=== PATIENT | male | born 1995 | race Caucasian/White ===

== ENCOUNTER 2017-09-09 20:34 | Emergency (ER) | payer SELFPAY ==
[2017-09-09 20:40] VITALS: RESP 16
[2017-09-09] MEDS ORDERED: Sodium Chloride 0.9% 1,000 ML IV STA (20:59)
[2017-09-09 21:18] LABS: BASO # 0.1 K/uL (0.0-0.2); BASO % 0.6 % (0.0-2.0); EOS % 0.1 % (0.0-4.0); HEMOGLOBIN 13.5 g/dL (12.0-18.0); LYMPH # 2.2 K/uL (1.0-4.3); LYMPH % 11.6 % (20.0-40.0); MEAN CELL VOLUME 85.1 fl (80.0-94.0); MEAN CORPUSCULAR HEMOGLOBIN 28.9 pg (27.0-31.0); MEAN PLATELET VOLUME 9.8 fl (7.2-11.7); MONO # 0.8 K/uL (0.0-0.8); MONO % 4.1 % (0.0-10.0); NEUT # 16.1 K/uL (1.8-7.0); NEUT % 83.6 % (50.0-75.0); RBC 4.66 Mil/uL (4.40-5.90); WHITE BLOOD COUNT 19.3 K/uL (4.8-10.8)
[2017-09-09 21:27] LABS: CALCIUM 9.2 mg/dL (8.4-10.2); GFR AFRICAN-AMERICAN > 60; GFR NON-AFRICAN AMERICAN > 60
[2017-09-09 21:28] LABS: ALB/GLOB RATIO 1.2 (1.0-2.1); ALBUMIN 4.4 g/dL (3.5-5.0); ALT/SGPT 28 U/L (21-72); AST/SGOT 38 U/L (17-59); BLOOD UREA NITROGEN 22 mg/dl (9-20)
--- NOTE | 2017-09-09 22:18 | ED PDOC ---
HPI: Psych/Substance Abuse Time Seen by Provider: 09/09/17 20:44 Chief Complaint (Nursing): Substance Abuse Chief Complaint (Provider): Substance Abuse ED Caveat: Altered Mental Status History Per: Patient History/Exam Limitations: intoxication Current Symptoms Are (Timing): Still Present Additional History Per: EMS Additional Complaint(s): Stephon is a 22 y/o male who was brought to the ED via EMS for substance abuse. 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 The fall was witnessed and patient did not lose consciousness. Patient admitted to EMS to eating chocolate containing THC but denied any other drug use. PMD: None Provided Past Medical History Reviewed: Historical Data, Nursing Documentation, Vital Signs, Unable To Obtain Vital Signs: Last Vital Signs Temp 99 F 09/09/17 20:37 Pulse 137 H 09/09/17 20:37 Resp 16 09/09/17 20:37 BP 145/73 09/09/17 20:37 Pulse Ox 96 09/09/17 20:37 - Medical History PMH: Depression - Family History Family History: States: Unknown Family Hx - Social History Drugs: Cannabis - Immunization History Hx Tetanus Toxoid Vaccination: No Hx Influenza Vaccination: No Hx Pneumococcal Vaccination: No - Home Medications Home Medications: Ambulatory Orders Medication Instructions Recorded Acetaminophen [Tylenol] 2 tab PO ONCE 08/02/15 Divalproex [Depakote DR(*BID*)] 2 tab PO DAILY 08/02/15 Dm Hydrobrom/Promethazine Hc 5 ml PO Q6 #4 oz 08/02/15 [Promethazine Dm 15 mg/5 ml-6.25 mg/5 ml 118 M] Oxymetazoline 0.05% [Oxymetazoline 1 ml NS DAILY #1 bottle 08/02/15 HCl 30 Ml] Quetiapine Fumarate [Seroquel] 1 tab PO DAILY 08/02/15 - Allergies Allergies/Adverse Reactions: Allergies Allergy/AdvReac Type Severity Reaction Status Date / Time No Known Allergies Allergy Unverified 08/02/15 15:12 Review of Systems Review Of Systems: ROS cannot be obtained secondary to pt's inabilty to answer questions. Physical Exam - Reviewed Nursing Documentation Reviewed: Yes Vital Signs Reviewed: Yes - Physical Exam Head Exam: Negative for: ATRAUMATIC (abrasion to right cheek) Extremity: Positive for: Other (abrasion to left metacarpal surface) Neurologic/Psych: Negative for: Alert (responsive but not speaking; obtunded) - Laboratory Results Result Diagrams: 09/09/17 21:13 09/09/17 21:13 - ECG O2 Sat by Pulse Oximetry: 96 (RA) Pulse Ox Interpretation: Normal Medical Decision Making Medical Decision Making: Time: 20:59 Initial Impression: 22 y/o male with altered mental status in setting of drug use and witnessed fall Initial Plan: --CT Head w/o Contrast --EKG --Alcohol Serum --CMP --Urine Drug Screen --Valproic Acid --CBC --Accucheck 22:[address] FINDINGS: Brain: No intracranial hemorrhage. No significant white matter disease. No evidence of evolved territorial infarct. No mass effect or midline shift. Ventricles: Unremarkable. No ventriculomegaly. Bones/joints: No acute osseous abnormality. Soft tissues: No soft tissue swelling. Sinuses: Visualized paranasal sinuses are clear. Mastoid air cells: Mastoid air cells are well-aerated. IMPRESSION: No acute findings. 05:42 --Pt is awake, alert and oriented X3. He reports improvement of symptoms. Pt is stable upon discharge. Diagnosed with marijuana abuse. Scribe Attestation: Documented by Aristides Cisneros, acting as a scribe for Dr. Rajesh De Santiago MD. Provider Scribe Attestation: All medical record entries made by the Scribe were at my direction and personally dictated by me. I have reviewed the chart and agree that the record accurately reflects my personal performance of the history, physical exam, medical decision making, and the department course for this patient. I have also personally directed, reviewed, and agree with the discharge instructions and disposition. Disposition - Clinical Impression Clinical Impression: Marijuana abuse - Disposition Disposition Time: 05:45 Condition: STABLE Instructions: Cannabis Abuse (ED) Forms: [facility] (Honduran)
[2017-09-10 07:40] VITALS: BP 128/75; PULSE 85; TEMP 98; O2SAT 100
--- NOTE | 2017-09-10 07:51 | CARD ---
APPROVED REPORT EKG Measurement Heart [id number] <Conclusion> Sinus tachycardia Otherwise normal ECG
--- NOTE | 2017-09-10 09:02 | CT ---
PROCEDURE: CT HEAD WITHOUT CONTRAST. HISTORY: AMS COMPARISON: None available. TECHNIQUE: Axial computed tomography images were obtained through the head/brain without intravenous contrast. Radiation dose: Total exam DLP = 842.24 mGy-cm. This CT exam was performed using one or more of the following dose reduction techniques: Automated exposure control, adjustment of the mA and/or kV according to patient size, and/or use of iterative reconstruction technique. FINDINGS: HEMORRHAGE: No intracranial hemorrhage. BRAIN: No mass effect or edema. No atrophy or chronic microvascular ischemic changes. VENTRICLES: Unremarkable. No hydrocephalus. CALVARIUM: Unremarkable. PARANASAL SINUSES: Unremarkable as visualized. No significant inflammatory changes. MASTOID AIR CELLS: Unremarkable as visualized. No inflammatory changes. OTHER FINDINGS: None. IMPRESSION: No CT evidence of acute pathology in the brain. Preliminary report was submitted by [facility].
== END 2017-09-10 07:40 | disposition home or self-care (01) ==
LOC: H.ER 20:34
DX: F12.10 Cannabis abuse, uncomplicated (principal); Z86.59 Personal history of other mental and behavioral disorders
CPT/HCPCS: 70450; 80053; 80164; 82948; 85025; 93005; 96360; 99282; G0480; J7040